=== PATIENT | male | born 1990 | race Two or more races ===

== ENCOUNTER 2024-03-19 01:04 | Emergency (ER) | payer MEDICAID, OTHER ==
[~2024-03-19] VITALS: Ht 180.3 cm; Wt 127.0 kg
[2024-03-19 01:11] VITALS: BP 0/0; PULSE 0; RESP 0; O2SAT 0
== END 2024-03-19 01:11 ==
LOC: EDBD 01:04 → ER 01:04
DX: I46.9 Cardiac arrest, cause unspecified (principal); V43.52XA Car driver injured in collision with other type car in traffic accident, initial encounter; Y93.89 Activity, other specified; Y92.89 Other specified places as the place of occurrence of the external cause; Y99.8 Other external cause status
CPT/HCPCS: 92950